=== PATIENT | female | born 2000 | race Hispanic/Latino ===

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

== ENCOUNTER 2022-11-12 22:21 | Emergency (ER) | payer OTHER, SELFPAY | END 2022-11-12 23:00 | disposition home or self-care (01) | LOC: ERS 22:21 | DX: O36.8120 Decreased fetal movements, second trimester, not applicable or unspecified (principal); O99.332 Smoking (tobacco) complicating pregnancy, second trimester; F17.210 Nicotine dependence, cigarettes, uncomplicated; Z3A.22 22 weeks gestation of pregnancy | CPT/HCPCS: 99283 ==